=== PATIENT | male | born 1970 ===

== ENCOUNTER 2021-10-08 09:23 | Inpatient (IN) | payer OTHER ==
[~2021-10-08] VITALS: Ht 165.1 cm; Wt 72.7 kg
[2021-10-08 10:33] LABS: BASOPHILS % (AUTO) 0.5 % (0.0-2.0); EOSINOPHILS % (AUTO) 0.3 % (1.0-6.0); HEMATOCRIT 47.2 % (41-53); HEMOGLOBIN 16.2 g/dL (13.5-17.5); LYMPHOCYTES # (AUTO) 1.4 K/uL (1.0-4.8); MEAN CORPUSCULAR HEMOGLOBIN 30.2 pg (26.0-34.0); MEAN CORPUSCULAR HGB CONC 34.3 G/dL (31.0-37.0); MEAN CORPUSCULAR VOLUME 88 fL (80-100); MONOCYTES # (AUTO) 0.5 K/uL (0.1-1.0); MONOCYTES % (AUTO) 5.6 % (2.0-9.0); NEUTROPHILS # (AUTO) 6.6 K/uL (1.8-7.7); NEUTROPHILS % (AUTO) 77.6 % (40.0-70.0); PLATELET COUNT (AUTO) 316 K/uL (150-450); RED BLOOD CELL COUNT(AUTO) 5.36 MIL/uL (4.50-5.90); RED CELL DISTRIBUTION WIDTH 12.7 % (11.5-14.5)
[2021-10-08 10:47] LABS: COVID AG,FIA SOURCE NASOPHARYNGEAL
[2021-10-08 10:53] LABS: ANION GAP 6 mmol/L (8-16); CALCIUM, TOTAL 9.5 mg/dL (8.8-10.5); CARBON DIOXIDE 28 mmol/L (22-29); CHLORIDE 102 mmol/L (98-107); CREATININE 1.05 mg/dL (0.60-1.30); GLOMERULAR FILTR. RATE CALC > 60 mL/min (>60); GLUCOSE,RANDOM 108 mg/dL (70-110); POTASSIUM 4.5 mmol/L (3.5-5.1); SODIUM SERUM 136 mmol/L (136-145); UREA NITROGEN, BLOOD 14 mg/dL (7-18)
[2021-10-08 10:59] LABS: ALANINE AMINOTRANSFERASE 30 U/L (12-78); ALBUMIN 4.1 g/dL (3.4-5.0); ALKALINE PHOSPHATASE 85 U/L (46-116); ASPARTATE AMINOTRANSFERASE 21 U/L (15-37); BILIRUBIN,TOTAL 0.8 mg/dL (0.1-1.0); TOTAL PROTEIN, SERUM 8.9 g/dL (6.4-8.2)
[2021-10-08 14:48] VITALS: BP 125/74
[2021-10-08 16:24] LABS: AMPHET/METH SCREEN,URINE NEGATIVE (NEGATIVE); BARBITURATE SCREEN, URINE NEGATIVE (NEGATIVE); BENZODIAZEPINES SCREEN,URINE NEGATIVE (NEGATIVE); CANNABINOID SCREEN,URINE NEGATIVE (NEGATIVE); COCAINE SCREEN,URINE NEGATIVE (NEGATIVE); METHADONE SCREEN, URINE NEGATIVE (NEGATIVE); OPIATE SCREEN,URINE NEGATIVE (NEGATIVE)
[2021-10-08 16:27] LABS: PHENCYCLIDINE SCREEN,URINE NEGATIVE (NEGATIVE)
[2021-10-08] MEDS ORDERED: MAGNESIUM HYDROXIDE SUSPENSION 30 ML UDCUP PO PRN (16:30)
[2021-10-08] MEDS ORDERED: ACETAMINOPHEN 325 MG TABLET PO PRN (16:30)
[2021-10-08] MEDS ORDERED: MAG HYDROX/AL HYDROX/SIMETH ES 30 ML SUSPENSION UDCUP PO PRN (16:30)
[2021-10-08] MEDS ORDERED: NICOTINE 14 MG/24 HOUR PATCH TD PRN (16:30)
[2021-10-08] MEDS ORDERED: DOCUSATE SODIUM 100 MG CAPSULE PO PRN (16:30)
[2021-10-08] MEDS ORDERED: CloNIDine HCL 0.1 MG TABLET PO PRN (16:30)
[2021-10-08] MEDS ORDERED: ONDANSETRON HCL 4 MG TABLET PO PRN (16:30)
[2021-10-08] MEDS ORDERED: IBUPROFEN 400 MG TABLET PO PRN (16:30)
[2021-10-08] MEDS ORDERED: LOPERAMIDE HCL 2 MG CAPSULE PO PRN (16:30)
[2021-10-08] MEDS ORDERED: GuaiFENesin/D-METHORPHAN [SUGAR-FREE] 200-20MG/10 ML SYRUP UDCUP PO PRN (16:30)
[2021-10-08] MEDS ORDERED: ALBUTEROL SULFATE HFA 90 MCG/PUFF 8 GM INHALER IH PRN (16:30)
[2021-10-08] MEDS ORDERED: PETROLATUM,WHITE 28 GM JELLY TP PRN (16:30)
[2021-10-08 20:20] VITALS: BP 117/77
[2021-10-09 05:30] VITALS: BP 121/81
[2021-10-09 08:22] VITALS: BP 121/80
[2021-10-09 13:00] VITALS: BP 116/77
[2021-10-09 15:01] VITALS: BP 101/72
[2021-10-09 20:25] VITALS: BP 110/75
[2021-10-10 05:15] VITALS: BP 98/60
[2021-10-10 08:00] VITALS: BP 120/71
[2021-10-10] MEDS ORDERED: ACET-2247 PO (16:29)
[2021-10-10] MEDS ORDERED: DOCU-270 PO (16:30)
[2021-10-10] MEDS ORDERED: ALBU8HFA IH (16:30)
[2021-10-10] MEDS ORDERED: IBUP-1506 PO (16:31)
[2021-10-10] MEDS ORDERED: MAAES30 PO (16:32)
[2021-10-10 20:22] VITALS: BP 111/64
[2021-10-11 04:35] VITALS: BP 110/62
== END 2021-10-11 06:36 | DRG 881 ==
LOC: EMS 09:23 → 6S 14:35
PROVIDERS: ADMIT Internal Medicine; ATTEND Internal Medicine
DX: F32.A Depression, unspecified (principal); R45.851 Suicidal ideations; Z20.822 Contact with and (suspected) exposure to COVID-19
CPT/HCPCS: 80053; 85025; 99285; G0480